=== PATIENT | female | born 1995 | race Caucasian/White ===

== ENCOUNTER 2017-08-06 17:40 | Outpatient (CLI) | payer MEDICAID | END 2017-08-06 21:16 | disposition home or self-care (01) | LOC: OBT 17:40 → L-D 17:41 → OBT 21:16 | DX: O36.8130 Decreased fetal movements, third trimester, not applicable or unspecified (principal); Z3A.31 31 weeks gestation of pregnancy | CPT/HCPCS: 76818 ==

== ENCOUNTER 2017-10-03 15:30 | Outpatient (CLI) | payer MEDICAID ==
[2017-10-03 15:52] LABS: ADD MAN DIFF? NO
[2017-10-03 15:54] LABS: BASOPHILS % 0.4 % (0.0-2.0); EOSINOPHILS % 0.5 % (0.0-7.0); HEMATOCRIT 40.6 % (37.0-47.0); HEMOGLOBIN 13.8 g/dl (12.0-16.0); LYMPHOCYTES # 1.9 10^3/ul (0.8-2.9); LYMPHOCYTES % 33.2 % (18.0-55.0); MEAN CORPUSCULAR HEMOGLOBIN 27.2 pg (29.0-33.0); MEAN CORPUSCULAR VOLUME 80.1 fl (72.0-104.0); MEAN PLATELET VOLUME 10.7 fl (7.4-10.4); MONOCYTE # 0.3 10^3/ul (0.3-0.9); MONOCYTES % 4.9 % (0.0-13.0); NEUTROPHIL # 3.4 10^3/ul (1.6-7.5); NEUTROPHILS % 60.3 % (30.0-74.0); PLATELET COUNT 215 10^3/UL (140-415); RED BLOOD COUNT 5.07 10^6/ul (4.20-5.40); RED CELL DISTRIBUTION WIDTH 15.1 % (11.5-14.5)
[2017-10-03 15:54] LABS: WHITE BLOOD COUNT 5.7 10^3/ul (4.8-10.8)
[2017-10-03 16:09] LABS: ADD UMIC YES; UR ASCORBIC ACID NEGATIVE (NEGATIVE); UR BACTERIA FEW /HPF (NONE SEEN); UR BILIRUBIN (Dip) NEGATIVE (NEGATIVE); UR BLOOD (Dip) NEGATIVE (NEGATIVE); UR CLARITY CLEAR (CLEAR); UR COLOR STRAW (YELLOW); UR GLUCOSE (Dip) NEGATIVE (NEGATIVE); UR KETONES (Dip) NEGATIVE (NEGATIVE); UR LEUKOCYTE ESTERASE (Dip) TRACE Leu/ul (NEGATIVE); UR NITRITE (Dip) NEGATIVE (NEGATIVE); UR RBC 1 /HPF (0-5); UR SPECIFIC GRAVITY (Dip) 1.005 (1.003-1.030); UR TOTAL PROTEIN (Dip) NEGATIVE (NEGATIVE); UR UROBILINOGEN (Dip) NEGATIVE (NEGATIVE); UR WBC 1 /HPF (0-5)
[2017-10-03 16:12] LABS: ALANINE AMINOTRANSFERASE 33 IU/L (13-69); ALBUMIN/GLOBULIN RATIO 1.08; ALKALINE PHOSPHATASE 319 IU/L (42-121); ANION GAP 19 (8-16); ASPARTATE AMINO TRANSFERASE 41 IU/L (15-46); BILIRUBIN,INDIRECT 0.5 mg/dl (0-1.1); BILIRUBIN,TOTAL 0.5 mg/dl (0.2-1.3); BLOOD UREA NITROGEN 10 mg/dl (7-20); CALCIUM 9.5 mg/dl (8.4-10.2); CARBON DIOXIDE 18 mmol/L (21-31); CHLORIDE 108 mmol/L (97-110); CREATININE 0.61 mg/dl (0.44-1.00); GLUCOSE 116 mg/dl (70-220); POTASSIUM 4.1 mmol/L (3.5-5.1); SODIUM 141 mmol/L (135-144); TOTAL PROTEIN 7.7 g/dl (6.1-8.1); URIC ACID 4.3 mg/dl (3.1-7.9)
[2017-10-03 16:28] LABS: INR 0.87; PROTIME 11.9 Sec (11.9-14.9); PT RATIO 0.9
[2017-10-03 16:29] LABS: PARTIAL THROMBOPLASTIN TIME 26.9 Sec (25.0-35.0)
== END 2017-10-03 18:18 | disposition home or self-care (01) ==
LOC: OBT 15:30 → L-D 15:34 → OBT 18:18
DX: O26.893 Other specified pregnancy related conditions, third trimester (principal); R03.0 Elevated blood-pressure reading, without diagnosis of hypertension; Z3A.39 39 weeks gestation of pregnancy
CPT/HCPCS: 36415; 76818; 80053; 81001; 84560; 85025; 85610; 85730

== ENCOUNTER 2017-10-05 04:45 | Inpatient (IN) | payer MEDICAID ==
[2017-10-05] MEDS ORDERED: METHYLERGONOVINE 0.2 MG INJ IM (08:30)
[2017-10-05] MEDS ORDERED: BUTORPHANOL 2 MG INJ IV ×2 (08:30)
[2017-10-05] MEDS ORDERED: CARBOPROST 250 MCG INJ IM (08:30)
[2017-10-05] MEDS ORDERED: LIDOCAINE 1% (MPF) 30 ML INJ INJ (08:30)
[2017-10-05] MEDS ORDERED: MISOPROSTOL 200 MCG TAB PR (08:30)
[2017-10-05] MEDS: LACTATED RINGER'S 1,000 ML IV ×4 (08:37→22:36)
[2017-10-05 08:45] LABS: ADD MAN DIFF? NO
[2017-10-05 08:52] LABS: WHITE BLOOD COUNT 8.6 10^3/ul (4.8-10.8)
[2017-10-05 08:52] LABS: BASOPHILS % 0.3 % (0.0-2.0); EOSINOPHILS % 0.5 % (0.0-7.0); HEMATOCRIT 41.1 % (37.0-47.0); HEMOGLOBIN 13.9 g/dl (12.0-16.0); LYMPHOCYTES # 1.8 10^3/ul (0.8-2.9); LYMPHOCYTES % 20.3 % (18.0-55.0); MEAN CORPUSCULAR HEMOGLOBIN 27.1 pg (29.0-33.0); MEAN CORPUSCULAR HGB CONC 33.8 g/dl (32.0-37.0); MEAN CORPUSCULAR VOLUME 80.3 fl (72.0-104.0); MEAN PLATELET VOLUME 10.9 fl (7.4-10.4); MONOCYTE # 0.4 10^3/ul (0.3-0.9); MONOCYTES % 4.2 % (0.0-13.0); NEUTROPHIL # 6.4 10^3/ul (1.6-7.5); NEUTROPHILS % 74.2 % (30.0-74.0); PLATELET COUNT 212 10^3/UL (140-415); RED BLOOD COUNT 5.12 10^6/ul (4.20-5.40); RED CELL DISTRIBUTION WIDTH 15.1 % (11.5-14.5)
[2017-10-05 09:12] LABS: INR 0.89; PROTIME 12.1 Sec (11.9-14.9); PT RATIO 0.9
[2017-10-05 09:13] LABS: PARTIAL THROMBOPLASTIN TIME 28.6 Sec (25.0-35.0)
[2017-10-05] MEDS ORDERED: AMPICILLIN 2 GM/NS (PMX) 100 ML (09:19)
[2017-10-05] MEDS: AMPICILLIN 2 GM/NS (PMX) 100 ML IVPB (09:30)
[2017-10-05] MEDS: OXYTOCIN 30 UNITS/LR 500 ML IV (09:30)
[2017-10-05] MEDS ORDERED: OXYTOCIN 30 UNITS/LR 500 ML IV (09:30)
[2017-10-05] MEDS: AMPICILLIN 1 GM/NS (PMX) 50 ML IVPB ×3 (13:49→21:54)
[2017-10-05] MEDS ORDERED: FENTAnyl 2MCG/ML-ROPIV 0.2% 100 ML (15:32)
[2017-10-05] MEDS ORDERED: NALOXONE (0.4 MG/ML) INJ IV (16:00)
[2017-10-05 21:40] LABS: RAPID PLASMA REAGIN NONREACTIVE (NR)
[2017-10-05] MEDS: ACETAMINOPHEN 325 MG TAB PO (23:11)
[2017-10-05] MEDS: FENTAnyl 2MCG/ML-ROPIV 0.2% 100 ML BAG EPI (23:34)
[2017-10-06] MEDS: AMPICILLIN 1 GM/NS (PMX) 50 ML IVPB (01:12)
[2017-10-06] MEDS ORDERED: LACTATED RINGER'S 1,000 ML IV* (03:06)
[2017-10-06] MEDS ORDERED: OXYTOCIN 30 UNITS/LR 500 ML IV (03:30)
[2017-10-06] MEDS ORDERED: METHYLERGONOVINE 0.2 MG INJ IM (03:30)
[2017-10-06] MEDS ORDERED: MISOPROSTOL 200 MCG TAB PR (03:30)
[2017-10-06] MEDS ORDERED: CARBOPROST 250 MCG INJ IM (03:30)
[2017-10-06 04:50] LABS: HEPATITIS B SURFACE ANTIGEN NEGATIVE (NEGATIVE)
[2017-10-06] MEDS: LANOLIN 7 GM TUBE TOP (05:34)
[2017-10-06] MEDS: BENZOCAINE 20% 56 ML SPRAY TOP (05:34)
[2017-10-06] MEDS: IBUPROFEN 600 MG TAB PO ×4 (05:34→23:15)
[2017-10-06] MEDS: WITCH HAZEL/GLYCERIN PAD PR (05:34)
[2017-10-06] MEDS: OXYTOCIN 30 UNITS/LR 500 ML IV (05:37)
[2017-10-06] MEDS: OXYCODONE/ASPIRIN (4.88/325) TAB PO (12:50)
[2017-10-07] MEDS: IBUPROFEN 600 MG TAB PO ×4 (06:00→23:45)
[2017-10-07 09:41] LABS: ADD MAN DIFF? NO
[2017-10-07 09:43] LABS: BASOPHILS % 0.2 % (0.0-2.0); EOSINOPHILS # 0.1 10^3/ul (0.0-0.5); HEMATOCRIT 33.4 % (37.0-47.0); HEMOGLOBIN 11.2 g/dl (12.0-16.0); LYMPHOCYTES # 2.5 10^3/ul (0.8-2.9); LYMPHOCYTES % 26.5 % (18.0-55.0); MEAN CORPUSCULAR HEMOGLOBIN 27.3 pg (29.0-33.0); MEAN CORPUSCULAR HGB CONC 33.5 g/dl (32.0-37.0); MEAN CORPUSCULAR VOLUME 81.3 fl (72.0-104.0); MEAN PLATELET VOLUME 10.8 fl (7.4-10.4); MONOCYTE # 0.3 10^3/ul (0.3-0.9); MONOCYTES % 3.5 % (0.0-13.0); NEUTROPHIL # 6.5 10^3/ul (1.6-7.5); NEUTROPHILS % 68.4 % (30.0-74.0); PLATELET COUNT 210 10^3/UL (140-415); RED BLOOD COUNT 4.11 10^6/ul (4.20-5.40); RED CELL DISTRIBUTION WIDTH 15.9 % (11.5-14.5)
[2017-10-07 09:43] LABS: WHITE BLOOD COUNT 9.5 10^3/ul (4.8-10.8)
[2017-10-07] MEDS: OXYCODONE/ASPIRIN (4.88/325) TAB PO (10:33)
[2017-10-08] MEDS: IBUPROFEN 600 MG TAB PO ×2 (06:05→12:10)
[2017-10-08] MEDS: DIPHTH/TET/ACEL PERTUSS (ADULT) 0.5 ML VIAL IM* (15:27)
== END 2017-10-08 17:30 | disposition home or self-care (01) | DRG 775 ==
LOC: OBT 04:45 → PP1 10-06 05:09 → L-D 04:45 → OBT 08:07 → L-D 08:00
PROVIDERS: Obstetrics & Gynecology
PROC: 10E0XZZ Delivery of Products of Conception, External Approach (ICD-10-PCS; principal; 2017-10-06)
PROC: 0W8NXZZ Division of Female Perineum, External Approach (ICD-10-PCS; 2017-10-06)
PROC: 3E033VJ Introduction of Other Hormone into Peripheral Vein, Percutaneous Approach (ICD-10-PCS; 2017-10-06)
DX: O76 Abnormality in fetal heart rate and rhythm complicating labor and delivery (principal); Z3A.39 39 weeks gestation of pregnancy; Z37.0 Single live birth
CPT/HCPCS: 62319; 76815; 76818; 85025; 85610; 85730; 86592; 86900; 86901; 87340; 90715; 99464

== ENCOUNTER 2018-12-29 19:50 | Emergency (ER) | payer MEDICAID ==
[2018-12-29] MEDS: ONDANSETRON (ODT) 4 MG TAB ODT (21:02)
[2018-12-29] MEDS: FAMOTIDINE 20 MG TAB PO (21:02)
[2018-12-29] MEDS: LIDOCAINE/MYLANTA 40 ML BTL PO (21:02)
[2018-12-29 21:10] LABS: WHITE BLOOD COUNT 5.6 10^3/ul (4.8-10.8)
[2018-12-29 21:10] LABS: BASOPHILS % 0.4 % (0.0-2.0); EOSINOPHILS # 0.3 10^3/ul (0.0-0.5); EOSINOPHILS % 5.2 % (0.0-7.0); HEMATOCRIT 34.4 % (37.0-47.0); HEMOGLOBIN 10.4 g/dl (12.0-16.0); LYMPHOCYTES # 1.9 10^3/ul (0.8-2.9); LYMPHOCYTES % 34.6 % (15.0-51.0); MEAN CORPUSCULAR HGB CONC 30.2 g/dl (32.0-37.0); MEAN CORPUSCULAR VOLUME 72.7 fl (82.0-101.0); MEAN PLATELET VOLUME 9.7 fl (7.4-10.4); MONOCYTE # 0.4 10^3/ul (0.3-0.9); MONOCYTES % 7.5 % (0.0-11.0); NEUTROPHIL # 2.9 10^3/ul (1.6-7.5); NEUTROPHILS % 52.1 % (39.0-77.0); PLATELET COUNT 314 10^3/UL (140-415); RED BLOOD COUNT 4.73 10^6/ul (4.20-5.40); RED CELL DISTRIBUTION WIDTH 15.7 % (11.5-14.5)
[2018-12-29 21:11] LABS: ADD MAN DIFF? NO
[2018-12-29 21:20] LABS: ADD UMIC YES; UR AMORPHOUS CRYSTAL MODERATE /HPF (NONE SEEN); UR ASCORBIC ACID NEGATIVE (NEGATIVE); UR BILIRUBIN (Dip) NEGATIVE (NEGATIVE); UR BLOOD (Dip) NEGATIVE (NEGATIVE); UR CLARITY CLOUDY (CLEAR); UR COLOR YELLOW (YELLOW); UR GLUCOSE (Dip) NEGATIVE (NEGATIVE); UR KETONES (Dip) NEGATIVE (NEGATIVE); UR LEUKOCYTE ESTERASE (Dip) NEGATIVE Leu/ul (NEGATIVE); UR NITRITE (Dip) NEGATIVE (NEGATIVE); UR RBC 0 /HPF (0-5); UR SQUAMOUS EPITHELIAL CELL FEW /HPF (FEW); UR TOTAL PROTEIN (Dip) NEGATIVE (NEGATIVE); UR UROBILINOGEN (Dip) NEGATIVE (NEGATIVE); UR WBC 0 /HPF (0-5)
[2018-12-29 21:35] LABS: ALANINE AMINOTRANSFERASE 54 IU/L (13-69); ALBUMIN 4.3 g/dl (3.3-4.9); ALBUMIN/GLOBULIN RATIO 1.26; ALKALINE PHOSPHATASE 124 IU/L (42-121); AMYLASE 60 U/L (11-123); ANION GAP 9 (5-13); ASPARTATE AMINO TRANSFERASE 49 IU/L (15-46); BLOOD UREA NITROGEN 10 mg/dl (7-20); CALCIUM 9.1 mg/dl (8.4-10.2); CARBON DIOXIDE 27 mmol/L (21-31); CHLORIDE 106 mmol/L (97-110); Estimated GFR > 60 mL/min (>60); GLUCOSE 94 mg/dl (70-220); LIPASE 83 U/L (23-300); POTASSIUM 3.7 mmol/L (3.5-5.1); SODIUM 142 mmol/L (135-144); TOTAL PROTEIN 7.7 g/dl (6.1-8.1)
== END 2018-12-29 22:52 | disposition home or self-care (01) ==
LOC: FTE 19:50
DX: K76.0 Fatty (change of) liver, not elsewhere classified (principal)
CPT/HCPCS: 36415; 76705; 80053; 81001; 81025; 82150; 83690; 85025; 87086; 99284-25